=== PATIENT | female | born 1980 | race Two or more races ===

== ENCOUNTER → 2019-08-17 | Outpatient (CLI) | payer OTHER | END | disposition home or self-care (01) | LOC: PRENATAL 14:00 | DX: O35.3XX0 Maternal care for (suspected) damage to fetus from viral disease in mother, not applicable or unspecified (principal); O09.512 Supervision of elderly primigravida, second trimester; O99.012 Anemia complicating pregnancy, second trimester ==

== ENCOUNTER 2019-11-29 16:42 | Inpatient (IN) | payer OTHER ==
[~2019-11-29] VITALS: Ht 162.6 cm; Wt 140.2 kg
[2019-11-29] MEDS ORDERED: OBSTETRIX DHA1 EACH PO (19:12)
== END 2019-12-01 19:46 | disposition home or self-care (01) | DRG 833 ==
LOC: LDR 16:42
PROVIDERS: ADMIT Obstetrics & Gynecology
PROC: 30233N1 Transfusion of Nonautologous Red Blood Cells into Peripheral Vein, Percutaneous Approach (ICD-10-PCS; 2019-11-29)
PROC: BY4FZZZ Ultrasonography of Third Trimester, Single Fetus (ICD-10-PCS; principal; 2019-11-30)
PROC: 4A1HXCZ Monitoring of Products of Conception, Cardiac Rate, External Approach (ICD-10-PCS; 2019-11-30)
DX: O99.013 Anemia complicating pregnancy, third trimester (principal)

== ENCOUNTER → 2019-11-29 | Outpatient (CLI) | payer OTHER ==
[~2019-11-29] MED LIST: OBSTETRIX DHA1 EACH PO
== END | disposition home or self-care (01) ==
LOC: PRENATAL 15:00
DX: O36.8193 Decreased fetal movements, unspecified trimester, fetus 3 (principal); O26.843 Uterine size-date discrepancy, third trimester

== ENCOUNTER 2019-12-14 10:15 | Inpatient (IN) | payer OTHER ==
[~2019-12-14] VITALS: Ht 162.6 cm; Wt 3.6 kg
== END 2019-12-18 14:28 | disposition home or self-care (01) | DRG 788 ==
LOC: LDR 20:45 → O/R 20:45 → OB/GYN 12-15 17:08
PROVIDERS: ADMIT Obstetrics & Gynecology
PROC: 3E033VJ Introduction of Other Hormone into Peripheral Vein, Percutaneous Approach (ICD-10-PCS; 2019-12-15)
PROC: 4A1HXFZ Monitoring of Products of Conception, Cardiac Rhythm, External Approach (ICD-10-PCS; 2019-12-15)
PROC: 10D00Z1 Extraction of Products of Conception, Low, Open Approach (ICD-10-PCS; principal; 2019-12-15 12:00)
DX: O65.4 Obstructed labor due to fetopelvic disproportion, unspecified (principal); Z3A.38 38 weeks gestation of pregnancy; O14.94 Unspecified pre-eclampsia, complicating childbirth; O99.214 Obesity complicating childbirth; Z37.0 Single live birth